=== PATIENT | female | born 1950 | race Two or more races ===

== ENCOUNTER 2020-11-26 17:37 | Inpatient (IN) | payer OTHER ==
[~2020-11-26] VITALS: Ht 160 cm; Wt 73.5 kg
[2020-11-26 18:35] LABS: Urine Bacteria MANY /hpf (None Seen); Urine Blood 2+ /uL (Negative); Urine Mucus MANY (None Seen); Urine Specific Gravity 1.016 (1.001-1.035); Urine WBC 124 /hpf (0 - 5); Urine WBC Clumps PRESENT /hpf (None Seen)
[2020-11-26 20:37] LABS: Basophils # (auto) 0.1 10 ^3/uL (0-0.2); Basophils % (auto) 0.8 % (0.0-2.0); Eosinophils # (auto) 0 10 ^3/uL (0-0.8); Eosinophils % (auto) 0.1 % (0.0-7.0); Hematocrit 36.7 % (36.0-46.0); Hemoglobin 12.4 g/dL (12.2-16.2); Lymphocytes # (auto) 1.2 10 ^3/uL (0.4-5.4); Lymphocytes % (auto) 8.7 % (10.0-50.0); Mean Corpuscular Hgb Conc. 33.9 g/dL (32.0-36.0); Mean Corpuscular Volume 100.5 fL (80.0-100.0); Monocytes # (auto) 0.8 10 ^3/uL (0-1.3); Monocytes % (auto) 5.7 % (0.0-12.0); Neutrophils # (auto) 11.9 10 ^3/uL (1.6-8.6); Neutrophils % (auto) 84.7 % (37.0-80.0); Nucleated Red Blood Cells % 0.8 %; Red Blood Cells 3.65 10^6/uL (4.0-5.20); White Blood Cell 14.1 10^3/uL (4.4-10.8)
[2020-11-26 20:48] LABS: Red Cell Distribution Width 26.1 % (11.8-14.3)
[2020-11-26 20:51] LABS: Albumin 2.3 g/dL (3.4-5.0); Anion Gap 13 (5-15); Blood Urea Nitrogen 79 mg/dL (7-18); Calcium 9.7 mg/dL (8.5-10.1); Carbon Dioxide 19 mmol/L (21-32); Chloride 93 mmol/L (98-107); Glucose 91 mg/dL (74-106); Magnesium 3.1 mg/dL (1.6-2.6); Sodium 125 mmol/L (136-145)
[2020-11-26 20:53] LABS: INR 2.21 (0.9-1.15); Partial Thromboplastin Time 67.1 sec (23.0-31.2)
[2020-11-26 20:57] LABS: Alanine Aminotransferase 24 U/L (13-56); Alkaline Phosphatase 336 U/L (45-117); Aspartate Aminotransferase 44 U/L (15-37); BUN/Creatinine Ratio 22.5; Bilirubin, Total 3.8 mg/dL (0.2-1.0); GFR African American 16 mL/min; GFR Non-African American 14 mL/min
[2020-11-26 21:01] LABS: Potassium 6.1 mmol/L (3.5-5.1)
[2020-11-26] MEDS ORDERED: metroNIDAZOLE 500MG/100ML 100 ML IV ONE (21:15)
[2020-11-26] MEDS ORDERED: InsuLIN REG 1unit/0.01ml Soln (100units/ml) IV ONE (21:15)
[2020-11-26] MEDS ORDERED: DEXTROSE (50%) 50ML SYRG IV ONE (21:15)
[2020-11-26] MEDS ORDERED: FUROSEMIDE 20 MG/2 ML VIAL IV ONE (21:15)
[2020-11-26] MEDS ORDERED: ALBUTEROL SULF 2.5 MG/0.5ML(0.5%) NEB SOLN NEB ONE (21:15)
[2020-11-26] MEDS ORDERED: SODIUM BICARBONATE 8.4% INJ 50ML SYRINGE IV ONE (21:15)
[2020-11-26] MEDS ORDERED: SODIUM CHLORIDE 0.9% 500 ML IV ONE ×2 (21:15→22:15)
[2020-11-26] MEDS ORDERED: ALBUTEROL SULF 2.5 MG/0.5ML(0.5%) NEB SOLN ONE (21:25)
[2020-11-26 21:30] VITALS: BP 79/42
[2020-11-26] MEDS ORDERED: ENOXAPARIN SOD 60 MG/0.6 ML SYRINGE SC ONE (21:45)
[2020-11-26] MEDS ORDERED: CIPROFLOXACIN 400MG/200ML 200 ML IV ONE (22:30)
[2020-11-26] MEDS ORDERED: NOREPINEPHRINE 8 MG/250ML KIT 250 ML IV ONE (22:39)
[2020-11-26] MEDS: NOREPINEPHRINE 8 MG/250ML KIT 250 ML IV SCH (22:48)
[2020-11-26] MEDS ORDERED: LIDOCAINE 1% HCL (LOCAL ANESTH.) INJ 20ML MDV ONE (23:10)
[2020-11-26 23:14] LABS: Lactic Acid w/Reflex 4.6 mmol/L (0.4-2.0)
[2020-11-27] MEDS ORDERED: ALBUMIN 5% 250 ML IV ONE (01:15)
[2020-11-27] MEDS ORDERED: VANCOMYCIN PER PHARMACY 0 MG IV SCH (01:15)
[2020-11-27] MEDS ORDERED: NITROGLYCERIN 0.4 MG SL TAB SL PRN (01:30)
[2020-11-27] MEDS ORDERED: ACETAMINOPHEN 325 MG TAB PO PRN (01:30)
[2020-11-27] MEDS ORDERED: DOCUSATE SOD 100 MG CAP PO PRN (01:30)
[2020-11-27] MEDS ORDERED: DEXTROSE (50%) 50ML SYRG IV PRN (01:30)
[2020-11-27] MEDS ORDERED: ONDANSETRON HCL 4 MG/2 ML VIAL IV PRN (01:30)
[2020-11-27] MEDS ORDERED: VANCOMYCIN 1GM/250ML 250 ML IV ONE (01:45)
[2020-11-27] MEDS ORDERED: ALBUTEROL SULF 2.5 MG/0.5ML(0.5%) NEB SOLN NEB PRN (02:00)
[2020-11-27] MEDS ORDERED: ALBUTEROL SULF 2.5 MG/0.5ML(0.5%) NEB SOLN NEB SCH (02:00)
[2020-11-27] MEDS ORDERED: IPRATROPIUM BROM 0.5 MG/2.5ML INH SOL NEB SCH (02:00)
[2020-11-27] MEDS ORDERED: IPRATROPIUM BROM 0.5 MG/2.5ML INH SOL NEB PRN (02:00)
[2020-11-27 07:29] LABS: Basophils # (auto) 0.1 10 ^3/uL (0-0.2); Basophils % (auto) 0.4 % (0.0-2.0); Eosinophils # (auto) 0 10 ^3/uL (0-0.8); Eosinophils % (auto) 0.3 % (0.0-7.0); Hematocrit 29.8 % (36.0-46.0); Lymphocytes # (auto) 0.7 10 ^3/uL (0.4-5.4); Lymphocytes % (auto) 4.3 % (10.0-50.0); Mean Corpuscular Hemoglobin 33.7 pg (28.0-32.0); Mean Corpuscular Hgb Conc. 33.6 g/dL (32.0-36.0); Mean Corpuscular Volume 100.2 fL (80.0-100.0); Monocytes # (auto) 0.9 10 ^3/uL (0-1.3); Monocytes % (auto) 5.2 % (0.0-12.0); Neutrophils # (auto) 14.9 10 ^3/uL (1.6-8.6); Neutrophils % (auto) 89.8 % (37.0-80.0); Nucleated Red Blood Cells % 0.3 %; Red Blood Cells 2.98 10^6/uL (4.0-5.20); White Blood Cell 16.6 10^3/uL (4.4-10.8)
[2020-11-27 07:44] LABS: Potassium 4.5 mmol/L (3.5-5.1)
[2020-11-27 07:50] LABS: Albumin 2.2 g/dL (3.4-5.0); BUN/Creatinine Ratio 22.5; Bilirubin, Total 3.8 mg/dL (0.2-1.0); Magnesium 2.6 mg/dL (1.6-2.6); Total Protein 5.6 g/dL (6.4-8.2)
[2020-11-27 07:51] LABS: Red Cell Distribution Width 26.7 % (11.8-14.3)
[2020-11-27] MEDS: SODIUM CHLOR 0.9% PF (SALINE LOCK) 10ML VIAL/SYR IV SCH ×3 (08:32→21:29)
[2020-11-27] MEDS: metroNIDAZOLE 500MG/100ML 100 ML IV SCH ×3 (08:32→21:00)
[2020-11-27] MEDS: MULTIPLE VITAMIN TAB PO SCH (08:41)
[2020-11-27] MEDS: NYSTATIN TOPICAL POWDER 15GM TOP SCH ×2 (08:41→21:38)
[2020-11-27] MEDS: ENOXAPARIN SOD 30 MG/0.3 ML SYRINGE SC SCH (08:41)
[2020-11-27] MEDS: ASCORBIC ACID 500 MG TAB PO SCH ×2 (08:41→21:29)
[2020-11-27] MEDS: InsuLIN REG 1unit/0.01ml Soln (100units/ml) SC SCH ×4 (09:29→21:54)
[2020-11-27] MEDS: ACCU-CHEK COMFORT CURVE STRIP VI SCH ×4 (09:30→21:54)
[2020-11-27] MEDS ORDERED: FUROSEMIDE 20 MG/2 ML VIAL IV SCH (10:00)
[2020-11-27] MEDS ORDERED: FAMOTIDINE (10MG/ML) 2ML VL IV SCH (10:00)
[2020-11-27] MEDS ORDERED: ZINC SULFATE 220mg CAP or TAB PO SCH (10:00)
[2020-11-27] MEDS: NOREPINEPHRINE 8 MG/250ML KIT 250 ML IV SCH (11:04)
[2020-11-27] MEDS: ALBUMIN 25% 100 ML IV SCH ×2 (12:05→19:45)
[2020-11-27] MEDS ORDERED: SODIUM CHLORIDE 0.9% 2,000 ML IV ONE (15:45)
[2020-11-27] MEDS ORDERED: FUROSEMIDE 40 MG/4 ML VIAL IV ONE (15:45)
[2020-11-27] MEDS: HYDROcodone-ACET 5/325MG TAB PO PRN (16:37)
[2020-11-27] MEDS: MEROPENEM 500MG IVPB 50 ML IV SCH (18:00)
[2020-11-27] MEDS: FUROSEMIDE 20 MG/2 ML VIAL IV SCH (18:00)
[2020-11-27 18:43] LABS: Hematocrit 26.1 % (36.0-46.0)
[2020-11-27] MEDS: PANTOPRAZOLE 40 MG/10 ML VIAL INJ IV SCH (21:29)
[2020-11-27] MEDS: LINEZOLID 600MG/300ML 300 ML IV SCH (21:30)
[2020-11-28] MEDS: MORPHINE SULFATE INJECTION 2 MG/ML SYRG IV PRN ×2 (01:25→04:30)
[2020-11-28] MEDS: ALBUMIN 25% 100 ML IV SCH (02:41)
[2020-11-28] MEDS: SODIUM CHLOR 0.9% PF (SALINE LOCK) 10ML VIAL/SYR IV SCH ×3 (04:11→20:37)
[2020-11-28] MEDS: metroNIDAZOLE 500MG/100ML 100 ML IV SCH ×3 (04:11→20:37)
[2020-11-28] MEDS: MEROPENEM 500MG IVPB 50 ML IV SCH ×2 (05:02→18:49)
[2020-11-28] MEDS: FUROSEMIDE 20 MG/2 ML VIAL IV SCH ×2 (05:02→18:02)
[2020-11-28] MEDS: InsuLIN REG 1unit/0.01ml Soln (100units/ml) SC SCH ×4 (05:24→21:51)
[2020-11-28] MEDS: ACCU-CHEK COMFORT CURVE STRIP VI SCH ×4 (05:27→21:51)
[2020-11-28] MEDS ORDERED: dilTIAZem 25 MG/5 ML VIAL IV ONE (07:00)
[2020-11-28 07:40] LABS: Potassium 3.1 mmol/L (3.5-5.1)
[2020-11-28 07:52] LABS: BUN/Creatinine Ratio 21.7; Calcium 7.9 mg/dL (8.5-10.1)
[2020-11-28 07:55] LABS: Bilirubin, Total 3.7 mg/dL (0.2-1.0); Total Protein 5.3 g/dL (6.4-8.2)
[2020-11-28 07:59] LABS: Basophils # (auto) 0 10 ^3/uL (0-0.2); Eosinophils # (auto) 0 10 ^3/uL (0-0.8); Eosinophils % (auto) 0.1 % (0.0-7.0); Hemoglobin 7.8 g/dL (12.2-16.2); Lymphocytes # (auto) 0.3 10 ^3/uL (0.4-5.4); White Blood Cell 5.6 10^3/uL (4.4-10.8)
[2020-11-28 08:01] LABS: Basophils % (auto) 0.3 % (0.0-2.0); Lymphocytes % (auto) 5.1 % (10.0-50.0); Mean Corpuscular Hemoglobin 34.4 pg (28.0-32.0); Mean Corpuscular Hgb Conc. 33.9 g/dL (32.0-36.0); Mean Corpuscular Volume 101.4 fL (80.0-100.0); Monocytes # (auto) 0.2 10 ^3/uL (0-1.3); Monocytes % (auto) 4.4 % (0.0-12.0); Neutrophils # (auto) 5.1 10 ^3/uL (1.6-8.6); Neutrophils % (auto) 90.1 % (37.0-80.0); Nucleated Red Blood Cells % 0.2 %; Red Blood Cells 2.27 10^6/uL (4.0-5.20)
[2020-11-28 08:22] LABS: Red Cell Distribution Width 27.6 % (11.8-14.3)
[2020-11-28] MEDS: ENOXAPARIN SOD 30 MG/0.3 ML SYRINGE SC SCH (10:00)
[2020-11-28] MEDS ORDERED: ENOXAPARIN SOD 30 MG/0.3 ML SYRINGE SC SCH (10:00)
[2020-11-28] MEDS: NYSTATIN TOPICAL POWDER 15GM TOP SCH ×2 (10:49→21:51)
[2020-11-28] MEDS: LINEZOLID 600MG/300ML 300 ML IV SCH ×2 (10:49→21:50)
[2020-11-28] MEDS: MULTIPLE VITAMIN TAB PO SCH (10:49)
[2020-11-28] MEDS: PANTOPRAZOLE 40 MG/10 ML VIAL INJ IV SCH ×2 (10:49→20:37)
[2020-11-28 14:40] LABS: Eosinophils # (auto) 0 10 ^3/uL (0-0.8); Eosinophils % (auto) 0.1 % (0.0-7.0); Lymphocytes # (auto) 0.4 10 ^3/uL (0.4-5.4); Monocytes # (auto) 0.2 10 ^3/uL (0-1.3); Neutrophils # (auto) 5.2 10 ^3/uL (1.6-8.6); Nucleated Red Blood Cells % 0.1 %; Red Blood Cells 2.34 10^6/uL (4.0-5.20); White Blood Cell 5.9 10^3/uL (4.4-10.8)
[2020-11-28 14:42] LABS: Basophils # (auto) 0.1 10 ^3/uL (0-0.2); Lymphocytes % (auto) 6.8 % (10.0-50.0); Mean Corpuscular Hgb Conc. 33.2 g/dL (32.0-36.0); Mean Corpuscular Volume 102.5 fL (80.0-100.0); Monocytes % (auto) 3.9 % (0.0-12.0); Neutrophils % (auto) 88.2 % (37.0-80.0)
[2020-11-28 14:47] LABS: Red Cell Distribution Width 28.1 % (11.8-14.3)
[2020-11-28 14:55] LABS: % Iron Saturation 72.5 % (15-50); Albumin 2.7 g/dL (3.4-5.0); Calcium 7.5 mg/dL (8.5-10.1)
[2020-11-28] MEDS: SODIUM CHLORIDE 0.9% 1,000 ML IV SCH (14:59)
[2020-11-28 15:03] LABS: BUN/Creatinine Ratio 22.1; Bilirubin, Total 3.6 mg/dL (0.2-1.0); Pre Albumin 4.4 mg/dL (20.0-40.0); Total Protein 5.2 g/dL (6.4-8.2)
[2020-11-28 15:11] LABS: INR 1.74 (0.9-1.15)
[2020-11-28 15:12] LABS: Potassium 2.6 mmol/L (3.5-5.1)
[2020-11-28 15:13] LABS: Partial Thromboplastin Time 102.4 sec (23.0-31.2)
[2020-11-28] MEDS ORDERED: POTASSIUM CHLORIDE 80 MEQ, LIDOCAINE 1% (LOCAL ANESTH.) 6 ML in SODIUM CHL 0.9% 500 ML IV ONE (15:15)
[2020-11-28 18:09] LABS: Ferritin > 1650.0 ng/mL (10-322)
[2020-11-28] MEDS: NOREPINEPHRINE 8 MG/250ML KIT 250 ML IV SCH (19:30)
[2020-11-29] MEDS: metroNIDAZOLE 500MG/100ML 100 ML IV SCH ×3 (05:00→21:10)
[2020-11-29] MEDS: FUROSEMIDE 20 MG/2 ML VIAL IV SCH ×2 (05:48→18:00)
[2020-11-29] MEDS: MEROPENEM 500MG IVPB 50 ML IV SCH ×2 (05:49→21:10)
[2020-11-29 05:52] LABS: Basophils # (auto) 0.1 10 ^3/uL (0-0.2); Eosinophils # (auto) 0 10 ^3/uL (0-0.8); Eosinophils % (auto) 0.2 % (0.0-7.0); Hemoglobin 8.8 g/dL (12.2-16.2); Lymphocytes # (auto) 0.5 10 ^3/uL (0.4-5.4); Monocytes # (auto) 0.5 10 ^3/uL (0-1.3); Neutrophils # (auto) 8.9 10 ^3/uL (1.6-8.6); Neutrophils % (auto) 89.1 % (37.0-80.0); Nucleated Red Blood Cells % 0.2 %; Red Blood Cells 2.53 10^6/uL (4.0-5.20)
[2020-11-29 05:53] LABS: Basophils % (auto) 0.8 % (0.0-2.0); Hematocrit 25.6 % (36.0-46.0); Lymphocytes % (auto) 4.9 % (10.0-50.0); Mean Corpuscular Hemoglobin 34.8 pg (28.0-32.0); Mean Corpuscular Hgb Conc. 34.3 g/dL (32.0-36.0); Mean Corpuscular Volume 101.6 fL (80.0-100.0)
[2020-11-29 05:55] LABS: Red Cell Distribution Width 27.7 % (11.8-14.3)
[2020-11-29] MEDS: SODIUM CHLOR 0.9% PF (SALINE LOCK) 10ML VIAL/SYR IV SCH ×3 (05:55→22:34)
[2020-11-29 06:07] LABS: Potassium 3.8 mmol/L (3.5-5.1)
[2020-11-29 06:08] LABS: INR 1.49 (0.9-1.15)
[2020-11-29 06:16] LABS: Albumin 2.7 g/dL (3.4-5.0); BUN/Creatinine Ratio 23.9; Bilirubin, Total 3.4 mg/dL (0.2-1.0); Calcium 7.7 mg/dL (8.5-10.1); Total Protein 5.4 g/dL (6.4-8.2)
[2020-11-29] MEDS: SODIUM CHLORIDE 0.9% 1,000 ML IV SCH ×2 (06:39→22:35)
[2020-11-29] MEDS: InsuLIN REG 1unit/0.01ml Soln (100units/ml) SC SCH ×4 (07:00→22:00)
[2020-11-29] MEDS: ACCU-CHEK COMFORT CURVE STRIP VI SCH ×4 (07:58→22:34)
[2020-11-29] MEDS: MULTIPLE VITAMIN TAB PO SCH (10:00)
[2020-11-29] MEDS: PANTOPRAZOLE 40 MG/10 ML VIAL INJ IV SCH ×2 (10:35→22:34)
[2020-11-29] MEDS: LINEZOLID 600MG/300ML 300 ML IV SCH ×2 (10:36→22:44)
[2020-11-29] MEDS: NYSTATIN TOPICAL POWDER 15GM TOP SCH ×2 (10:36→22:00)
[2020-11-29] MEDS: ENOXAPARIN SOD 30 MG/0.3 ML SYRINGE SC SCH (10:36)
[2020-11-29] MEDS ORDERED: DOCUSATE SOD 100 MG CAP PO PRN (12:45)
[2020-11-29] MEDS ORDERED: LORazepam 2MG/ML-1ML VIAL IV PRN (12:45)
[2020-11-29 12:59] LABS: Folate (Folic Acid) 2.36 ng/mL (5.38-24)
[2020-11-29] MEDS ORDERED: DOXYCYCLINE 100 MG/250 ML IV ONE (20:54)
[2020-11-29 21:45] VITALS: BP 88/38
[2020-11-29] MEDS ORDERED: FURO20TA3 PO (22:21)
[2020-11-29] MEDS ORDERED: METO5TAB5 PO ×2 (22:21→22:25)
[2020-11-29] MEDS ORDERED: SULF400T11 PO (22:21)
[2020-11-29] MEDS ORDERED: SILV1CRE82 TOP (22:25)
[2020-11-29] MEDS ORDERED: APIX5TAB PO (22:25)
[2020-11-29] MEDS: NOREPINEPHRINE 8 MG/250ML KIT 250 ML IV SCH (22:30)
[2020-11-29] MEDS ORDERED: SODIUM CHLORIDE 0.9% 500 ML IV ONE (22:30)
[2020-11-29 22:57] VITALS: BP 89/40
[2020-11-30 00:36] VITALS: BP 91/41
[2020-11-30 02:09] VITALS: BP 91/41
[2020-11-30 04:40] VITALS: BP 73/45
[2020-11-30] MEDS: metroNIDAZOLE 500MG/100ML 100 ML IV SCH (05:33)
[2020-11-30] MEDS: FUROSEMIDE 20 MG/2 ML VIAL IV SCH ×2 (05:34→18:00)
[2020-11-30 05:39] VITALS: BP 96/38
[2020-11-30 06:19] LABS: Basophils # (auto) 0 10 ^3/uL (0-0.2); Eosinophils # (auto) 0 10 ^3/uL (0-0.8); Eosinophils % (auto) 0.3 % (0.0-7.0); Lymphocytes # (auto) 0.4 10 ^3/uL (0.4-5.4); Monocytes # (auto) 0.3 10 ^3/uL (0-1.3)
[2020-11-30 06:21] LABS: Basophils % (auto) 0.1 % (0.0-2.0); Hematocrit 24.6 % (36.0-46.0); Hemoglobin 8.3 g/dL (12.2-16.2); Mean Corpuscular Hemoglobin 35.1 pg (28.0-32.0); Mean Corpuscular Hgb Conc. 33.7 g/dL (32.0-36.0); Mean Corpuscular Volume 104.3 fL (80.0-100.0); Monocytes % (auto) 4.8 % (0.0-12.0); Neutrophils # (auto) 5.5 10 ^3/uL (1.6-8.6); Neutrophils % (auto) 88.8 % (37.0-80.0); Nucleated Red Blood Cells % 0.1 %; Red Blood Cells 2.36 10^6/uL (4.0-5.20); White Blood Cell 6.2 10^3/uL (4.4-10.8)
[2020-11-30] MEDS: ACCU-CHEK COMFORT CURVE STRIP VI SCH ×4 (06:38→22:36)
[2020-11-30] MEDS: SODIUM CHLOR 0.9% PF (SALINE LOCK) 10ML VIAL/SYR IV SCH ×3 (06:38→22:36)
[2020-11-30] MEDS: InsuLIN REG 1unit/0.01ml Soln (100units/ml) SC SCH ×4 (06:38→22:00)
[2020-11-30 06:51] LABS: Albumin 2.3 g/dL (3.4-5.0); BUN/Creatinine Ratio 24.3; Bilirubin, Total 3.1 mg/dL (0.2-1.0); Calcium 7.2 mg/dL (8.5-10.1)
[2020-11-30 06:59] LABS: Potassium 2.9 mmol/L (3.5-5.1)
[2020-11-30 07:26] LABS: Red Cell Distribution Width 27.6 % (11.8-14.3)
[2020-11-30 08:53] VITALS: BP 80/43
[2020-11-30] MEDS: NYSTATIN TOPICAL POWDER 15GM TOP SCH ×2 (10:00→22:00)
[2020-11-30] MEDS: PANTOPRAZOLE 40 MG/10 ML VIAL INJ IV SCH ×2 (10:00→23:24)
[2020-11-30] MEDS: MULTIPLE VITAMIN TAB PO SCH (10:00)
[2020-11-30] MEDS ORDERED: POTASSIUM CHLORIDE 20 MEQ, LIDOCAINE 1% (LOCAL ANESTH.) 2 ML in SODIUM CHL 0.9% 100 ML IV ONE (19:30)
[2020-11-30] MEDS: SODIUM CHLORIDE 0.9% 1,000 ML IV SCH (21:21)
[2020-11-30] MEDS ORDERED: ENOXAPARIN SOD 60 MG/0.6 ML SYRINGE SC SCH (22:00)
[2020-11-30] MEDS: HYDROcodone-ACET 5/325MG TAB PO PRN (22:16)
[2020-11-30] MEDS: DOXYCYCLINE 100MG/250ML 250 ML IV SCH (22:35)
[2020-11-30 22:37] VITALS: BP 81/46
[2020-11-30] MEDS: MEROPENEM 500MG IVPB 50 ML IV SCH ×2 (23:52→23:53)
[2020-12-01 05:06] VITALS: BP 93/47
[2020-12-01] MEDS: FUROSEMIDE 20 MG/2 ML VIAL IV SCH ×2 (06:00→18:00)
[2020-12-01] MEDS: InsuLIN REG 1unit/0.01ml Soln (100units/ml) SC SCH ×4 (06:08→21:33)
[2020-12-01] MEDS: SODIUM CHLOR 0.9% PF (SALINE LOCK) 10ML VIAL/SYR IV SCH ×3 (06:08→21:33)
[2020-12-01] MEDS: SODIUM CHLORIDE 0.9% 1,000 ML IV SCH (06:08)
[2020-12-01] MEDS: ACCU-CHEK COMFORT CURVE STRIP VI SCH ×2 (06:08→11:30)
[2020-12-01 06:17] LABS: Calcium 7.3 mg/dL (8.5-10.1)
[2020-12-01] MEDS: MULTIPLE VITAMIN TAB PO SCH (07:45)
[2020-12-01] MEDS: DOXYCYCLINE 100MG/250ML 250 ML IV SCH ×2 (08:00→19:57)
[2020-12-01 08:01] VITALS: BP 104/59
[2020-12-01 09:09] LABS: Basophils # (auto) 0 10 ^3/uL (0-0.2); Eosinophils # (auto) 0 10 ^3/uL (0-0.8); Eosinophils % (auto) 0.1 % (0.0-7.0); Hemoglobin 8.4 g/dL (12.2-16.2); Lymphocytes # (auto) 0.4 10 ^3/uL (0.4-5.4); Monocytes # (auto) 0.3 10 ^3/uL (0-1.3); Nucleated Red Blood Cells % 0.1 %
[2020-12-01 09:11] LABS: Basophils % (auto) 0.2 % (0.0-2.0); Hematocrit 25.3 % (36.0-46.0); Lymphocytes % (auto) 4.9 % (10.0-50.0); Mean Corpuscular Hemoglobin 34.9 pg (28.0-32.0); Mean Corpuscular Hgb Conc. 33.2 g/dL (32.0-36.0); Monocytes % (auto) 3.2 % (0.0-12.0); Neutrophils # (auto) 7.9 10 ^3/uL (1.6-8.6); Neutrophils % (auto) 91.6 % (37.0-80.0); White Blood Cell 8.6 10^3/uL (4.4-10.8)
[2020-12-01 09:14] LABS: Red Cell Distribution Width 28.6 % (11.8-14.3)
[2020-12-01] MEDS ORDERED: levoFLOXacin 250MG 50 ML IV ONE (09:30)
[2020-12-01] MEDS: SOD CHL 0.45% 1,000 ML IV SCH (09:45)
[2020-12-01] MEDS: NYSTATIN TOPICAL POWDER 15GM TOP SCH ×2 (10:00→22:07)
[2020-12-01] MEDS: levoFLOXacin 500MG 100 ML IV SCH (10:00)
[2020-12-01] MEDS: PANTOPRAZOLE 40 MG/10 ML VIAL INJ IV SCH ×2 (10:00→22:07)
[2020-12-01 12:00] VITALS: BP 102/59
[2020-12-01 16:00] VITALS: BP 97/69
[2020-12-01 22:00] VITALS: BP 95/47
[2020-12-02] MEDS: SOD CHL 0.45% 1,000 ML IV SCH ×2 (00:50→12:25)
[2020-12-02 05:00] VITALS: BP 98/62
[2020-12-02] MEDS: SODIUM CHLOR 0.9% PF (SALINE LOCK) 10ML VIAL/SYR IV SCH ×3 (05:45→22:00)
[2020-12-02] MEDS: InsuLIN REG 1unit/0.01ml Soln (100units/ml) SC SCH ×4 (05:46→22:00)
[2020-12-02] MEDS: FUROSEMIDE 20 MG/2 ML VIAL IV SCH ×2 (06:26→18:00)
[2020-12-02 07:48] LABS: BUN/Creatinine Ratio 30.5; Calcium 7.6 mg/dL (8.5-10.1)
[2020-12-02 07:50] LABS: Potassium 2.8 mmol/L (3.5-5.1)
[2020-12-02 08:00] VITALS: BP 91/48
[2020-12-02] MEDS: DOXYCYCLINE 100MG/250ML 250 ML IV SCH ×2 (08:00→20:00)
[2020-12-02] MEDS: NYSTATIN TOPICAL POWDER 15GM TOP SCH ×2 (10:00→22:00)
[2020-12-02] MEDS: MULTIPLE VITAMIN TAB PO SCH (10:00)
[2020-12-02] MEDS: PANTOPRAZOLE 40 MG/10 ML VIAL INJ IV SCH ×2 (10:00→22:00)
[2020-12-02] MEDS: levoFLOXacin 500MG 100 ML IV SCH (10:00)
[2020-12-02] MEDS ORDERED: POTASSIUM CHLORIDE 40 MEQ, LIDOCAINE 1% (LOCAL ANESTH.) 4 ML in SODIUM CHL 0.9% 250 ML IV ONE (11:00)
[2020-12-02 13:00] VITALS: BP 91/35
[2020-12-02 17:00] VITALS: BP 95/39
[2020-12-02 19:52] VITALS: BP 95/39
[2020-12-02 22:00] VITALS: BP 105/59
[2020-12-03 05:00] VITALS: BP 106/59
[2020-12-03] MEDS: SODIUM CHLOR 0.9% PF (SALINE LOCK) 10ML VIAL/SYR IV SCH ×3 (06:00→22:00)
[2020-12-03] MEDS: FUROSEMIDE 20 MG/2 ML VIAL IV SCH ×2 (06:00→18:00)
[2020-12-03 06:05] LABS: Basophils # (auto) 0 10 ^3/uL (0-0.2); Eosinophils # (auto) 0 10 ^3/uL (0-0.8); Hematocrit 24.5 % (36.0-46.0); Hemoglobin 8.2 g/dL (12.2-16.2); Lymphocytes # (auto) 0.5 10 ^3/uL (0.4-5.4); Monocytes # (auto) 0.3 10 ^3/uL (0-1.3); Nucleated Red Blood Cells % 0.1 %
[2020-12-03 06:09] LABS: Basophils % (auto) 0.3 % (0.0-2.0); Eosinophils % (auto) 0.6 % (0.0-7.0); Lymphocytes % (auto) 10.5 % (10.0-50.0); Mean Corpuscular Hemoglobin 34.8 pg (28.0-32.0); Mean Corpuscular Hgb Conc. 33.4 g/dL (32.0-36.0); Monocytes % (auto) 5.7 % (0.0-12.0); Neutrophils # (auto) 4.1 10 ^3/uL (1.6-8.6); Neutrophils % (auto) 82.9 % (37.0-80.0); Red Blood Cells 2.35 10^6/uL (4.0-5.20); White Blood Cell 4.9 10^3/uL (4.4-10.8)
[2020-12-03 06:15] LABS: Red Cell Distribution Width 27.5 % (11.8-14.3)
[2020-12-03 06:23] LABS: Albumin 2.1 g/dL (3.4-5.0); Calcium 7.3 mg/dL (8.5-10.1)
[2020-12-03 06:28] LABS: BUN/Creatinine Ratio 33.3; Bilirubin, Total 3.5 mg/dL (0.2-1.0); Total Protein 4.9 g/dL (6.4-8.2)
[2020-12-03 06:35] LABS: Potassium 2.6 mmol/L (3.5-5.1)
[2020-12-03] MEDS: InsuLIN REG 1unit/0.01ml Soln (100units/ml) SC SCH ×4 (07:00→22:00)
[2020-12-03] MEDS ORDERED: POTASSIUM CHL 20MEQ/100ML 100 ML IV ONE ×2 (08:45→11:34)
[2020-12-03] MEDS: DOXYCYCLINE 100MG/250ML 250 ML IV SCH ×2 (08:57→20:00)
[2020-12-03 09:00] VITALS: BP 99/68
[2020-12-03] MEDS: MULTIPLE VITAMIN TAB PO SCH (10:00)
[2020-12-03] MEDS: levoFLOXacin 250MG 50 ML IV SCH (11:02)
[2020-12-03] MEDS: PANTOPRAZOLE 40 MG/10 ML VIAL INJ IV SCH ×2 (11:02→22:00)
[2020-12-03 13:00] VITALS: BP 97/58
[2020-12-03] MEDS: NYSTATIN TOPICAL POWDER 15GM TOP SCH ×2 (14:11→22:00)
[2020-12-03] MEDS: SOD CHL 0.45% 1,000 ML IV SCH ×2 (14:58)
[2020-12-03 16:55] VITALS: BP 134/77
[2020-12-03 17:00] VITALS: BP 94/56
[2020-12-03 17:41] LABS: BUN/Creatinine Ratio 28.6; Calcium 7.6 mg/dL (8.5-10.1); Potassium 3.2 mmol/L (3.5-5.1)
[2020-12-03] MEDS: MORPHINE SULFATE 4 MG/ML SYR/VIAL IV PRN (18:50)
[2020-12-03 22:00] VITALS: BP 93/56
[2020-12-04] MEDS: MORPHINE SULFATE 4 MG/ML SYR/VIAL IV PRN (00:01)
[2020-12-04] MEDS: SOD CHL 0.45% 1,000 ML IV SCH (04:25)
[2020-12-04 05:00] VITALS: BP 102/47
[2020-12-04] MEDS: SODIUM CHLOR 0.9% PF (SALINE LOCK) 10ML VIAL/SYR IV SCH ×2 (06:00→14:00)
[2020-12-04] MEDS: FUROSEMIDE 20 MG/2 ML VIAL IV SCH (06:00)
[2020-12-04] MEDS: InsuLIN REG 1unit/0.01ml Soln (100units/ml) SC SCH ×2 (07:00→11:30)
[2020-12-04 07:08] LABS: Basophils # (auto) 0 10 ^3/uL (0-0.2); Eosinophils # (auto) 0 10 ^3/uL (0-0.8); Eosinophils % (auto) 0.5 % (0.0-7.0); Hematocrit 25.9 % (36.0-46.0); Hemoglobin 8.5 g/dL (12.2-16.2); Lymphocytes # (auto) 0.6 10 ^3/uL (0.4-5.4); Lymphocytes % (auto) 10.9 % (10.0-50.0); Mean Corpuscular Hemoglobin 34.7 pg (28.0-32.0); Mean Corpuscular Hgb Conc. 32.9 g/dL (32.0-36.0); Mean Corpuscular Volume 105.4 fL (80.0-100.0); Monocytes # (auto) 0.3 10 ^3/uL (0-1.3); Monocytes % (auto) 5.6 % (0.0-12.0); Neutrophils # (auto) 4.5 10 ^3/uL (1.6-8.6); Nucleated Red Blood Cells % 0.1 %; Red Blood Cells 2.46 10^6/uL (4.0-5.20); White Blood Cell 5.4 10^3/uL (4.4-10.8)
[2020-12-04 07:26] LABS: Red Cell Distribution Width 26.8 % (11.8-14.3)
[2020-12-04 07:28] LABS: Albumin 2.1 g/dL (3.4-5.0); BUN/Creatinine Ratio 30.3; Bilirubin, Total 3.6 mg/dL (0.2-1.0); Calcium 7.7 mg/dL (8.5-10.1); Total Protein 4.8 g/dL (6.4-8.2)
[2020-12-04 07:32] LABS: Potassium 2.9 mmol/L (3.5-5.1)
[2020-12-04 08:39] VITALS: BP 96/37
[2020-12-04] MEDS: DOXYCYCLINE 100MG/250ML 250 ML IV SCH (09:22)
[2020-12-04] MEDS: POTASSIUM CHL 20MEQ/100ML 100 ML IV SCH ×3 (09:22→14:33)
[2020-12-04] MEDS: MULTIPLE VITAMIN TAB PO SCH (10:00)
[2020-12-04] MEDS: levoFLOXacin 250MG 50 ML IV SCH (11:27)
[2020-12-04] MEDS: PANTOPRAZOLE 40 MG/10 ML VIAL INJ IV SCH (11:27)
[2020-12-04] MEDS: NYSTATIN TOPICAL POWDER 15GM TOP SCH (11:29)
[2020-12-04 13:00] VITALS: BP 97/52
[2020-12-04] MEDS ORDERED: levoFLOXacin 250MG 50 ML IV ONE (13:30)
[2020-12-05] MEDS ORDERED: levoFLOXacin 500MG 100 ML IV SCH (10:00)
== END 2020-12-04 15:15 | disposition hospice, home (50) | DRG 871 ==
LOC: ER 17:37 → EDBD 17:37 → OVERFLOW 11-27 01:20 → TELE-EAST 11-29 21:45
PROVIDERS: ADMIT Nurse Practitioner Family; ATTEND Internal Medicine
PROC: 02HV33Z Insertion of Infusion Device into Superior Vena Cava, Percutaneous Approach (ICD-10-PCS; principal; 2020-11-27)
DX: A41.02 Sepsis due to Methicillin resistant Staphylococcus aureus (principal); R65.21 Severe sepsis with septic shock; J69.0 Pneumonitis due to inhalation of food and vomit; G92 Toxic encephalopathy; J96.01 Acute respiratory failure with hypoxia; N17.0 Acute kidney failure with tubular necrosis; I63.89 Other cerebral infarction; E87.1 Hypo-osmolality and hyponatremia; I82.413 Acute embolism and thrombosis of femoral vein, bilateral; N39.0 Urinary tract infection, site not specified; D68.69 Other thrombophilia; D68.9 Coagulation defect, unspecified; I50.30 Unspecified diastolic (congestive) heart failure; E87.0 Hyperosmolality and hypernatremia; R47.01 Aphasia; E46 Unspecified protein-calorie malnutrition; Z51.5 Encounter for palliative care; Z20.822 Contact with and (suspected) exposure to COVID-19; R62.7 Adult failure to thrive; Z66 Do not resuscitate; L89.159 Pressure ulcer of sacral region, unspecified stage; K52.9 Noninfective gastroenteritis and colitis, unspecified; E87.5 Hyperkalemia; K80.20 Calculus of gallbladder without cholecystitis without obstruction; N18.9 Chronic kidney disease, unspecified; K29.70 Gastritis, unspecified, without bleeding; I95.9 Hypotension, unspecified; I48.91 Unspecified atrial fibrillation; E11.21 Type 2 diabetes mellitus with diabetic nephropathy; E87.6 Hypokalemia; D63.8 Anemia in other chronic diseases classified elsewhere; D69.6 Thrombocytopenia, unspecified; M47.816 Spondylosis without myelopathy or radiculopathy, lumbar region; E11.22 Type 2 diabetes mellitus with diabetic chronic kidney disease; M41.9 Scoliosis, unspecified; R74.8 Abnormal levels of other serum enzymes; B95.2 Enterococcus as the cause of diseases classified elsewhere; B96.20 Unspecified Escherichia coli [E. coli] as the cause of diseases classified elsewhere; R13.10 Dysphagia, unspecified; Z79.84 Long term (current) use of oral hypoglycemic drugs; Z88.0 Allergy status to penicillin; Z68.28 Body mass index [BMI] 28.0-28.9, adult
CPT/HCPCS: 36415; 36600; 51702; 70450; 71045; 74176; 76705; 80048; 80053; 81001; 82040; 82533; 82607; 82728; 82746; 82805; 82962; 83010; 83540; 83550; 83605; 83615; 83735; 83880; 84443; 84484; 85014; 85018; 85025; 85379; 85610; 85652; 85730; 86141; 86850; 86880; 86885; 86900; 86901; 87040; 87077; 87086; 87088; 87186; 87426; 92610; 93005; 93306; 93970; 96361; 96365; 96368; 96372; 96375; 99291; C9113; G0378; J1815; J1956; J2001; J2185; J2405; J3480; J3490; P9047